=== PATIENT | female | born 1975 | race Hispanic/Latino ===

== ENCOUNTER 2018-12-07 09:19 | Inpatient (IN) | payer BC ==
[2018-12-07] MEDS ORDERED: Morphine 4 MG/ML VIAL ONE ×2 (09:34→10:03)
[2018-12-07] MEDS ORDERED: Morphine 4 MG/ML VIAL IV STA ×2 (09:42→10:15)
--- NOTE | 2018-12-07 10:15 | ED PDOC ---
Lower Extremity Pain/Injury Time Seen by Provider: 12/07/18 09:25 Chief Complaint (Nursing): Lower Extremity Problem/Injury Chief Complaint (Provider): Right leg pain History Per: Patient History/Exam Limitations: no limitations Onset/Duration Of Symptoms: Hrs Current Symptoms Are (Timing): Still Present Additional Complaint(s): 43 year old female with a history of asthma presents to the ED for an evaluation of her right leg. Patients reports he was in the dog park and taken out by some dogs today. Currently, patient has right leg pain and states he called Dr. Bimal villeda, a family friend who was called prior to coming to ED. PMD: unknown provider Past Medical History Reviewed: Historical Data, Nursing Documentation, Vital Signs Vital Signs: Last Vital Signs Temp 98.2 F 12/07/18 09:23 Pulse 91 H 12/07/18 09:23 Resp 18 12/07/18 09:23 BP 146/50 L 12/07/18 09:23 Pulse Ox 100 12/07/18 09:23 - Medical History PMH: Asthma Denies: Chronic Kidney Disease - Family History Family History: States: Unknown Family Hx - Social History Current smoker - smoking cessation education provided: No Alcohol: None Drugs: Denies - Immunization History Hx Tetanus Toxoid Vaccination: No - Home Medications Home Medications: Ambulatory Orders Medication Instructions Recorded Montelukast [Singulair] 10 mg PO DAILY 11/05/14 Budesonide/Formoterol Fumarate 2 puff PO BID 12/07/18 [Symbicort 80-4.5 Mcg Inhaler] buPROPion [Wellbutrin] 75 mg PO DAILY 12/07/18 Docusate Sodium [Colace] 100 mg PO HS 30 Days #30 capsule 12/09/18 Enoxaparin [Lovenox] 40 mg SC DAILY 14 Days #14 syr 12/09/18 Ferrous Sulfate 325 mg PO BID 30 Days #60 tablet 12/09/18 oxyCODONE/Acetaminophen [Percocet 1 tab PO Q4 PRN #30 tab 12/09/18 5/325 mg Tab] - Allergies Allergies/Adverse Reactions: Allergies Allergy/AdvReac Type Severity Reaction Status Date / Time No Known Allergies Allergy Verified 11/05/14 07:10 Review of Systems ROS Statement: Except As Marked, All Systems Reviewed And Found Negative Constitutional: Negative for: Fever Musculoskeletal: Positive for: Leg Pain (right) Skin: Negative for: Rash Neurological: Negative for: Weakness, Numbness Physical Exam - Reviewed Nursing Documentation Reviewed: Yes Vital Signs Reviewed: Yes - Physical Exam Appears: Positive for: In Acute Distress (painful) Head Exam: Positive for: ATRAUMATIC, NORMAL INSPECTION, NORMOCEPHALIC Skin: Positive for: Normal Color, Warm, Dry. Negative for: Rash Eye Exam: Positive for: Normal appearance Cardiovascular/Chest: Positive for: Regular Rate, Rhythm. Negative for: Murmur Respiratory: Positive for: Normal Breath Sounds. Negative for: Decreased Breath Sounds, Respiratory Distress Pulses-Dorsalis Pedis (R): 2+ Extremity: Positive for: Deformity (Obvious deformity to distal right lower leg with superficial abrasion), Other (Moving all digits; sensation intact of right leg) Neurologic/Psych: Positive for: Alert, Oriented (x3) - Laboratory Results Result Diagrams: 12/09/18 05:15 12/09/18 05:15 - ECG O2 Sat by Pulse Oximetry: 100 (RA) Pulse Ox Interpretation: Normal Medical Decision Making Medical Decision Making: Time: 924 Impression: right leg pain Plan: ED urine Knee 3 views RT [RAD] Morphine 2mg Ankle right 3 views [RAD] Tibia fibula RT fall [RAD] Reevaluation Podiatry resident called into the ED and will be in ED at 11AM 0935 PROCEDURE: Radiographs of the right tibia and fibula. HISTORY: Fall COMPARISON: None available TECHNIQUE: Frontal and lateral views obtained. FINDINGS: BONES: Partially imaged fracture of the distal tibia and fibula. JOINT SPACES: Unremarkable. OTHER FINDINGS: None. IMPRESSION: Limited evaluation due to absence of AP view. Partially imaged fractures of the distal tibia and fibula. 0935 PROCEDURE: Right Ankle Radiographs. HISTORY: Fall COMPARISON: None available. FINDINGS: BONES: Fractures of the distal tibia and fibula. JOINTS: Ankle mortise maintained. Talar dome intact SOFT TISSUES: Normal. OTHER FINDINGS: None. IMPRESSION: Limited evaluation due to absence of AP view. Fractures of the distal tibia and fibula. 1052 PROCEDURE: CHEST RADIOGRAPH, 1 VIEW HISTORY: Medical clearance COMPARISON: None available. FINDINGS: LUNGS: Clear. PLEURA: No pneumothorax or pleural fluid seen. CARDIOVASCULAR: No aortic atherosclerotic calcification present. Normal. OSSEOUS STRUCTURES: No significant abnormalities. VISUALIZED UPPER ABDOMEN: Normal. OTHER FINDINGS: None. IMPRESSION: No active disease. 1106 PROCEDURE: Radiographs of the right tibia and fibula. HISTORY: Fall COMPARISON: Right tibia and fibula radiographs performed earlier the same day TECHNIQUE: Frontal and lateral views obtained. FINDINGS: BONES: Comminuted displaced fractures of the distal tibia and fibular diaphyses. JOINT SPACES: Unremarkable. OTHER FINDINGS: None. IMPRESSION: Comminuted displaced fractures of the distal tibia and fibular diaphyses. [address] Cheney and patient is will be admitted with right tib-fib fracture Scribe Attestation: Documented by Kayden Rosenbaum, acting as a scribe for Yani Dee MD. Provider Scribe Attestation: All medical record entries made by the Scribe were at my direction and personally dictated by me. I have reviewed the chart and agree that the record accurately reflects my personal performance of the history, physical exam, medical decision making, and the department course for this patient. I have also personally directed, reviewed, and agree with the discharge instructions and disposition. Disposition - Clinical Impression Clinical Impression: Fracture of tibia and fibula - Patient ED Disposition Is Patient to be Admitted: Yes - Disposition Disposition Time: 11:00 Condition: STABLE - Pt Status Changed To: Hospital Disposition Of: Inpatient - Admit Certification Admit to Inpatient:: After my assessment, the patient will require hospitalization for at least two midnights. This is because of the severity of symptoms shown, intensity of services needed, and/or the medical risk in this patient being treated as an outpatient. - POA Present On Arrival: Falls Or Trauma
--- NOTE | 2018-12-07 10:38 | RAD ---
Date of service: 12/07/2018 PROCEDURE: Radiographs of the right tibia and fibula. HISTORY: Fall COMPARISON: None available TECHNIQUE: Frontal and lateral views obtained. FINDINGS: BONES: Partially imaged fracture of the distal tibia and fibula. JOINT SPACES: Unremarkable. OTHER FINDINGS: None. IMPRESSION: Limited evaluation due to absence of AP view. Partially imaged fractures of the distal tibia and fibula.
--- NOTE | 2018-12-07 10:41 | RAD ---
Date of service: 12/07/2018 PROCEDURE: Right Ankle Radiographs. HISTORY: Fall COMPARISON: None available. FINDINGS: BONES: Fractures of the distal tibia and fibula. JOINTS: Ankle mortise maintained. Talar dome intact SOFT TISSUES: Normal. OTHER FINDINGS: None. IMPRESSION: Limited evaluation due to absence of AP view. Fractures of the distal tibia and fibula.
[2018-12-07 10:55] LABS: BASO # 0.1 K/uL (0.0-0.2); EOS # 0.7 K/uL (0.0-0.7); EOS % 6.6 % (0.0-4.0); HEMOGLOBIN 11.5 g/dL (12.0-16.0); LYMPH # 3.5 K/uL (1.0-4.3); LYMPH % 32.3 % (20.0-40.0); MEAN CELL VOLUME 80.2 fl (81.0-99.0); MEAN CORPUSCULAR HEMOGLOBIN 25.4 pg (27.0-31.0); MEAN CORPUSCULAR HGB CONC 31.7 g/dL (33.0-37.0); MEAN PLATELET VOLUME 8.5 fl (7.2-11.7); MONO # 0.9 K/uL (0.0-0.8); MONO % 8.5 % (0.0-10.0); NEUT # 5.6 K/uL (1.8-7.0); NEUT % 51.6 % (50.0-75.0); NRBC % 0.1 % (0.0-0.0); RBC 4.51 Mil/uL (3.80-5.20); RED CELL DISTRIBUTION WIDTH 16.7 % (11.5-14.5); WHITE BLOOD COUNT 10.9 K/uL (4.8-10.8)
--- NOTE | 2018-12-07 10:56 | RAD ---
Date of service: 12/07/2018 PROCEDURE: CHEST RADIOGRAPH, 1 VIEW HISTORY: Medical clearance COMPARISON: None available. FINDINGS: LUNGS: Clear. PLEURA: No pneumothorax or pleural fluid seen. CARDIOVASCULAR: No aortic atherosclerotic calcification present. Normal. OSSEOUS STRUCTURES: No significant abnormalities. VISUALIZED UPPER ABDOMEN: Normal. OTHER FINDINGS: None. IMPRESSION: No active disease.
[2018-12-07 11:10] LABS: ALB/GLOB RATIO 1.2 (1.0-2.1); ALBUMIN 4.4 g/dL (3.5-5.0); BLOOD UREA NITROGEN 15 mg/dl (7-17); CALCIUM 9.8 mg/dL (8.4-10.2); GFR NON-AFRICAN AMERICAN > 60
--- NOTE | 2018-12-07 11:10 | RAD ---
Date of service: 12/07/2018 PROCEDURE: Radiographs of the right tibia and fibula. HISTORY: Fall COMPARISON: Right tibia and fibula radiographs performed earlier the same day TECHNIQUE: Frontal and lateral views obtained. FINDINGS: BONES: Comminuted displaced fractures of the distal tibia and fibular diaphyses. JOINT SPACES: Unremarkable. OTHER FINDINGS: None. IMPRESSION: Comminuted displaced fractures of the distal tibia and fibular diaphyses.
[2018-12-07 11:11] LABS: ALT/SGPT 24 U/L (9-52); AST/SGOT 33 U/L (14-36)
[2018-12-07 11:16] LABS: INR 0.9; PROTHROMBIN TIME 10.1 Seconds (9.8-13.1)
[2018-12-07] MEDS ORDERED: Lidocaine 1% 5ml Abboject ONE (12:01)
[2018-12-07] MEDS ORDERED: Neostigmine 1:1000 (1 mg/ml) Inj ONE (12:01)
[2018-12-07] MEDS ORDERED: Rocuronium 10 mg/ml (5 ml) ONE (12:01)
[2018-12-07] MEDS ORDERED: Lidocaine 4% (Laryng-O-Jet) Kit MM ONE (12:01)
[2018-12-07] MEDS ORDERED: Midazolam 2 MG/2 ML VIAL ONE (12:01)
[2018-12-07] MEDS ORDERED: Propofol 10 mg/ml Inj (20 ML) ONE (12:01)
[2018-12-07] MEDS ORDERED: Succinylcholine Chloride 20 mg/ml Syr (5 ml) IV ONE (12:03)
--- NOTE | 2018-12-07 12:31 | CT ---
Date of service: 12/07/2018 PROCEDURE: CT of the right lower extremity. HISTORY: Tibial fx COMPARISON: Right tibia/fibula radiographs performed earlier the same day TECHNIQUE: Contiguous axial images of the left hip were obtained. Coronal and sagittal reformats were generated. Radiation dose: Total exam DLP = 624.03 mGy-cm. This CT exam was performed using one or more of the following dose reduction techniques: Automated exposure control, adjustment of the mA and/or kV according to patient size, and/or use of iterative reconstruction technique. FINDINGS: BONES: Comminuted displaced fractures of the distal tibial and fibular diaphyses. SOFT TISSUES: Lower extremity soft tissue swelling. Small amount of extraosseous fat due to fracture. IMPRESSION: Comminuted, displaced distal tibial and fibular diaphyseal fractures.
--- NOTE | 2018-12-07 12:36 | CP.PCM.HP ---
History of Present Illness - History of Present Illness History of Present Illness: 43 year old female presents to the ED this morning for an evaluation of her right leg. Patients reports she was walking in the dog park and was felled by a group of passing dogs. She immediately felt pain and was unable to weight-bear on the right leg. Currently, patient has right leg pain and states he called Dr. Morgan, a family friend who was called prior to coming to ED. PMD: unknown provider PMH: Asthma PSH: DNC, uterine fibroid excision All: NKNDA Meds: Albuterol, Sybicort, Albuterol, Wellbutin Fam Hx: Paternal Diabetes mellitus, MAternal grandfather: Cancer x3 Present on Admission - Present on Admission Any Indicators Present on Admission: No History of DVT/PE: No History of Uncontrolled Diabetes: No Urinary Catheter: No Decubitus Ulcer Present: No History Surgical Site Infection Following: None Review of Systems - Review of Systems All systems: reviewed and no additional remarkable complaints except Past Patient History - Infectious Disease Hx of Infectious Diseases: None - Past Medical History & Family History Past Family History: Reviewed and not pertinent - Past Social History Smoking Status: Former Smoker (Quit 20 plus years, smoked 1/5 pack a day for 5 year duration) Chewing Tobacco Use: No Cigar Use: No Occupation: Teacher Alcohol: None Drugs: Denies Home Situation {Lives}: With Family Domestic Violence: Negative - CARDIAC Hx Cardiac Disorders: No - PULMONARY Hx Asthma: Yes - NEUROLOGICAL Hx Neurological Disorder: No - HEENT Hx HEENT Problems: No - RENAL Hx Chronic Kidney Disease: No - ENDOCRINE/METABOLIC Hx Endocrine Disorders: No - HEMATOLOGICAL/ONCOLOGICAL Hx Blood Disorders: No - INTEGUMENTARY Hx Dermatological Problems: No - MUSCULOSKELETAL/RHEUMATOLOGICAL Hx Musculoskeletal Disorders: No - GASTROINTESTINAL Hx Gastrointestinal Disorders: No - GENITOURINARY/GYNECOLOGICAL Hx Genitourinary Disorders: No - PSYCHIATRIC Hx Psychophysiologic Disorder: Yes - SURGICAL HISTORY Hx Surgeries: No - ANESTHESIA Hx Anesthesia: No Hx Anesthesia Reactions: No Hx Malignant Hyperthermia: No Meds Allergies/Adverse Reactions: Allergies Allergy/AdvReac Type Severity Reaction Status Date / Time No Known Allergies Allergy Verified 11/05/14 07:10 Physical Exam - Constitutional Appears: Well - Head Exam Head Exam: ATRAUMATIC, NORMAL INSPECTION - Eye Exam Eye Exam: EOMI, Normal appearance, PERRL Pupil Exam: NORMAL ACCOMODATION, PERRL - ENT Exam ENT Exam: Mucous Membranes Moist, Normal Exam - Neck Exam Neck exam: Positive for: Normal Inspection - Respiratory Exam Respiratory Exam: Clear to Auscultation Bilateral, NORMAL BREATHING PATTERN - Cardiovascular Exam Cardiovascular Exam: REGULAR RHYTHM - GI/Abdominal Exam GI & Abdominal Exam: Normal Bowel Sounds, Soft - Rectal Exam Rectal Exam: Deferred - Extremities Exam Additional comments: Right mid leg external abduction mal-alignment deformity with accompanying edema and rubor. No open wounds. Soft tissue envelope intact to level. Popliteal and pedal pulses of the right lower extremity intact and grossly palpable. Results - Vital Signs Recent Vital Signs: Last Vital Signs Temp 98.2 F 12/07/18 09:23 Pulse 91 H 12/07/18 11:05 Resp 14 12/07/18 10:36 BP 177/97 H 12/07/18 10:36 Pulse Ox 100 12/07/18 11:22 - Labs Result Diagrams: 12/07/18 10:10 12/07/18 10:10 Labs: Laboratory Results - last 24 hr 12/07/18 12/07/18 12/07/18 10:10 10:10 10:10 WBC 10.9 H RBC 4.51 Hgb 11.5 L Hct 36.1 MCV 80.2 L MCH 25.4 L MCHC 31.7 L RDW 16.7 H Plt Count 345 MPV 8.5 Neut % (Auto) 51.6 Lymph % (Auto) 32.3 [place] % (Auto) 8.5 Eos % (Auto) 6.6 H Baso % (Auto) 1.0 Neut # (Auto) 5.6 Lymph # (Auto) 3.5 [place] # (Auto) 0.9 H Eos # (Auto) 0.7 Baso # (Auto) 0.1 PT INR APTT Sodium 136 Potassium 4.8 Chloride 99 Carbon Dioxide 23 Anion Gap 19 BUN 15 Creatinine 0.8 Est GFR ( Amer) > 60 Est GFR (Non-Af Amer) > 60 Random Glucose 101 Calcium 9.8 Total Bilirubin 0.6 AST 33 ALT 24 Alkaline Phosphatase 73 Total Protein 8.1 Albumin 4.4 Globulin 3.7 Albumin/Globulin Ratio 1.2 Blood Type O POSITIVE Antibody Screen Negative BBK History Checked No verified bt 12/07/18 10:10 WBC RBC Hgb Hct MCV MCH MCHC RDW Plt Count MPV Neut % (Auto) Lymph % (Auto) [place] % (Auto) Eos % (Auto) Baso % (Auto) Neut # (Auto) Lymph # (Auto) [place] # (Auto) Eos # (Auto) Baso # (Auto) PT 10.1 INR 0.9 APTT 28.0 Sodium Potassium Chloride Carbon Dioxide Anion Gap BUN Creatinine Est GFR ( Amer) Est GFR (Non-Af Amer) Random Glucose Calcium Total Bilirubin AST ALT Alkaline Phosphatase Total Protein Albumin Globulin Albumin/Globulin Ratio Blood Type Antibody Screen BBK History Checked Assessment & Plan - Assessment and Plan (Free Text) Assessment: Right lower extremity comminuted mid shaft tibia and fibular fractures, closed displaced. Plan: PT seen and evaluated. Co to orthopedics Dr. Vizcaino. placed Pt to go tho emergent right limb ORIF
[2018-12-07] MEDS ORDERED: Lactated Ringer's 1,000 ML IV ONE ×2 (13:00→15:52)
--- NOTE | 2018-12-07 15:44 | PCM.SURG1 ---
Surgeon's Initial Post Op Note - Surgeon's Notes Surgeon: Mahendra Beck. Dann Preciado, Dr. [facility] Internship: Dr. Kristin Chase, PGY3, Dr. Lincoln Romero Type of Anesthesia: General LMA Anesthesia Administered By: Dr. Koehler Pre-Operative Diagnosis: 1- Right tibial midshaft fractue. Closed, displaced and comminuted. 2- Right fibula midshaft fractue. Closed, displaced and comminuted. Operative Findings: See Dictation. Materials: Synthes size 9 intramedullary nail. 4 X 5.0 mm Screws Synthes. Injectables: None Post-Operative Diagnosis: 1- Right tibial midshaft fractue. Closed, displaced and comminuted. 2- Right fibula midshaft fractue. Closed, displaced and comminuted. Operation Performed: Right tibial Open reduction with internal fixation Via intramedullary nail. Specimen/Specimens Removed: None Estimated Blood Loss: EBL {In ML}: 60 Blood Products Given: N/A Drains Used: No Drains Post-Op Condition: Good Date of Surgery/Procedure: 12/07/18 Time of Surgery/Procedure: 15:46
[2018-12-07] MEDS ORDERED: HYDROmorphone 0.5 mg/0.5 ml ISec ONE (15:45)
[2018-12-07] MEDS: HYDROmorphone 0.5 mg/0.5 ml ISec IVP PRN ×4 (15:45→16:20)
--- NOTE | 2018-12-07 16:25 | CP.PCM.CON ---
History of Present Illness - History of Present Illness History of Present Illness: Consult not e for attending Dr. Vizcaino; 43 y/o F Patient with PMH of Asthma seen ad evaluated in the ED for pain and deformity in the right leg. Patient states that she was at the dog's park today morning when a dog ran through her and cause her to fall down. Patient states that she immediately felt the pain i her right leg and couldn't stand up. Patient states that she was brought to the [place] ED. Patient states that she has pain 10/10. She denies any tingling, numbness or burning sensation in her leg. She denies any recent F/N/V/C/C/CP/SOB. She denies any loss of consciousness or vomiting after the fall. PMH: Asthma. PSH: None Allergies: NKDA. Social Hx: Denies smoking or Illicit drug use. Use EtOH socially. Review of Systems - Review of Systems Review of Systems: As Per HPI - Constitutional Constitutional: As Per HPI Past Patient History - Infectious Disease Hx of Infectious Diseases: None - Past Medical History & Family History Past Family History: Reviewed and not pertinent - Past Social History Smoking Status: Former Smoker (Quit 20 plus years, smoked 1/5 pack a day for 5 year duration) Chewing Tobacco Use: No Cigar Use: No Occupation: Teacher Alcohol: None Drugs: Denies Home Situation {Lives}: With Family Domestic Violence: Negative - CARDIAC Hx Cardiac Disorders: No - PULMONARY Hx Asthma: Yes - NEUROLOGICAL Hx Neurological Disorder: No - HEENT Hx HEENT Problems: No - RENAL Hx Chronic Kidney Disease: No - ENDOCRINE/METABOLIC Hx Endocrine Disorders: No - HEMATOLOGICAL/ONCOLOGICAL Hx Blood Disorders: No - INTEGUMENTARY Hx Dermatological Problems: No - MUSCULOSKELETAL/RHEUMATOLOGICAL Hx Musculoskeletal Disorders: No - GASTROINTESTINAL Hx Gastrointestinal Disorders: No - GENITOURINARY/GYNECOLOGICAL Hx Genitourinary Disorders: No - PSYCHIATRIC Hx Psychophysiologic Disorder: Yes - SURGICAL HISTORY Hx Surgeries: No - ANESTHESIA Hx Anesthesia: No Hx Anesthesia Reactions: No Hx Malignant Hyperthermia: No Meds Allergies/Adverse Reactions: Allergies Allergy/AdvReac Type Severity Reaction Status Date / Time No Known Allergies Allergy Verified 11/05/14 07:10 - Medications Medications: Current Medications Acetaminophen (Tylenol 325mg Tab) 650 mg PO Q6 PRN PRN Reason: Pain, Mild (1-3) Hydromorphone HCl (Dilaudid) 0.5 mg IVP Q10M PRN PRN Reason: Pain, moderate (4-7) Stop: 12/07/18 17:39 Last Admin: 12/07/18 16:10 Dose: 0.5 mg Hydromorphone HCl (Dilaudid 0.2 Mg/Ml Operating Manager) 0 mg IV PRN PRN; Protocol PRN Reason: Pain, severe (8-10) Lactated Ringer's (Lactated Ringer's) 1,000 mls @ 100 mls/hr IV .Q10H TOY Ondansetron HCl (Zofran Inj) 4 mg IVP ONCE PRN PRN Reason: Nausea/Vomiting Stop: 12/07/18 17:39 Last Admin: 12/07/18 16:11 Dose: 4 mg Oxycodone/Acetaminophen (Percocet 5/325 Mg Tab) 1 tab PO Q4 PRN PRN Reason: Pain, moderate (4-7) Stop: 12/10/18 15:38 Oxycodone/Acetaminophen (Percocet 5/325 Mg Tab) 2 tab PO Q4 PRN PRN Reason: Pain, severe (8-10) Stop: 12/10/18 15:38 Physical Exam - Constitutional Appears: Well, Non-toxic, No Acute Distress - Head Exam Head Exam: ATRAUMATIC, NORMOCEPHALIC - Extremities Exam Additional comments: RLE Focused exam: Vasc: DP/PT 2/4, Cap refill < 3 sec to all digits, Temp gradient warm to cool from proximal to distal. Moderate non pitting edema and bruises at the lower 1/3 of the leg. Neuro: Gross and protective sensations are intact. Derm: Bruises at the lower 1/3 of the casas of tibia. MSK: Muscle power couldn't be assessed due to pain and guarding. Obvious deformi ty of the R LE with the distal 1/3 connected to the rest of the leg via soft tissue. - Neurological Exam Neurological exam: Alert, Oriented x3 - Psychiatric Exam Psychiatric exam: Normal Affect, Normal Mood Results - Vital Signs Recent Vital Signs: Last Vital Signs Temp 99.1 F 12/07/18 15:45 Pulse 107 H 12/07/18 16:10 Resp 19 12/07/18 16:10 BP 181/100 H 12/07/18 16:10 Pulse Ox 100 12/07/18 16:10 - Labs Result Diagrams: 12/07/18 10:10 12/07/18 10:10 Labs: Laboratory Results - last 24 hr 12/07/18 12/07/18 12/07/18 10:10 10:10 10:10 WBC 10.9 H RBC 4.51 Hgb 11.5 L Hct 36.1 MCV 80.2 L MCH 25.4 L MCHC 31.7 L RDW 16.7 H Plt Count 345 MPV 8.5 Neut % (Auto) 51.6 Lymph % (Auto) 32.3 [place] % (Auto) 8.5 Eos % (Auto) 6.6 H Baso % (Auto) 1.0 Neut # (Auto) 5.6 Lymph # (Auto) 3.5 [place] # (Auto) 0.9 H Eos # (Auto) 0.7 Baso # (Auto) 0.1 PT INR APTT Sodium 136 Potassium 4.8 Chloride 99 Carbon Dioxide 23 Anion Gap 19 BUN 15 Creatinine 0.8 Est GFR ( Amer) > 60 Est GFR (Non-Af Amer) > 60 Random Glucose 101 Calcium 9.8 Total Bilirubin 0.6 AST 33 ALT 24 Alkaline Phosphatase 73 Total Protein 8.1 Albumin 4.4 Globulin 3.7 Albumin/Globulin Ratio 1.2 Blood Type O POSITIVE Antibody Screen Negative BBK History Checked No verified bt 12/07/18 10:10 WBC RBC Hgb Hct MCV MCH MCHC RDW Plt Count MPV Neut % (Auto) Lymph % (Auto) [place] % (Auto) Eos % (Auto) Baso % (Auto) Neut # (Auto) Lymph # (Auto) [place] # (Auto) Eos # (Auto) Baso # (Auto) PT 10.1 INR 0.9 APTT 28.0 Sodium Potassium Chloride Carbon Dioxide Anion Gap BUN Creatinine Est GFR ( Amer) Est GFR (Non-Af Amer) Random Glucose Calcium Total Bilirubin AST ALT Alkaline Phosphatase Total Protein Albumin Globulin Albumin/Globulin Ratio Blood Type Antibody Screen BBK History Checked Assessment & Plan - Assessment and Plan (Free Text) Assessment: 43 y/o F patient with PMH of Asthma seen and evaluated in the ED for: 1- Right tibial midshaft fractue. Closed, displaced and comminuted. 2- Right fibula midshaft fractue. Closed, displaced and comminuted. Plan: Patient seen and evaluated in the ED. Plan discussed in dtails with attending Dr. Vizcaino. Charts, labs and vitals reviewed: Afebrile, no leukocytosis. R Tib-fibula X-ray: 1- Right tibial midshaft fractue. Closed, displaced and comminuted. 2- Right fibula midshaft fractue. Closed, displaced and comminuted. R LE CT scan: 1- Right tibial Diaphyseal fractue. Closed, displaced and comminuted. 2- Right fibula Diaphyseal fractue. Closed, displaced and comminuted. Patient RLE put in an AO posterior splint. Discussed with the patient the need to go to the OR for internal fixation of the fracture. Patient expressed verbal understanding. Patient agreed for the surgery. Patient to stay NPO. Patient to go to the OR for ORIF RLE today.CBC, BMP, Chest X-ray ordered. Patient to be admitted to the hospital by the primary team. Patient to be followed up at the hospital by ortho. Thank you for the consult. - Date & Time Date: 12/07/18 Time: 09:30
--- NOTE | 2018-12-07 16:32 | CP.PCM.HP ---
<Sultan Collette - Last Filed: 12/07/18 16:53> History of Present Illness - History of Present Illness History of Present Illness: 43 year old female with PMHx of asthma presents to [facility] ED this morning for an evaluation of her right leg pain. Patients states she was walking in the dog park with her dog this morning, was looking away and ran by dogs which caused to her fall down. She immediately felt pain and was unable to weight-bear on the right leg. In ED, right lower extermity x-ray shows fx of communited displaced fracture of distal tibia and fibula. Patient is admitted for ORIF of right tib/fib. ROS: All 12 systems reviewed and negative except as mentioned in HPI PMD: Dr. Escoto, [facility] PMHx: Asthma, Depression PSHx: DNC, uterine fibroid excision Family hx: Father: DMII, Paternal grandmother: ovarian CA Social: Former Smoker (Quit 20 plus years, smoked 1/5 pack a day for 5 year duration), social EtOH use. denies any drugs uses. Allergies: NKDA Medications: Albuterol, Symbicort, Singulair,wellbutrin Present on Admission - Present on Admission Any Indicators Present on Admission: No Review of Systems - Review of Systems All systems: reviewed and no additional remarkable complaints except Past Patient History - Infectious Disease Hx of Infectious Diseases: None - Past Medical History & Family History Past Family History: Reviewed and not pertinent - Past Social History Smoking Status: Former Smoker (Quit 20 plus years, smoked 1/5 pack a day for 5 year duration) Chewing Tobacco Use: No Cigar Use: No Occupation: Teacher Alcohol: None Drugs: Denies Home Situation {Lives}: With Family Domestic Violence: Negative - CARDIAC Hx Cardiac Disorders: No - PULMONARY Hx Asthma: Yes - NEUROLOGICAL Hx Neurological Disorder: No - HEENT Hx HEENT Problems: No - RENAL Hx Chronic Kidney Disease: No - ENDOCRINE/METABOLIC Hx Endocrine Disorders: No - HEMATOLOGICAL/ONCOLOGICAL Hx Blood Disorders: No - INTEGUMENTARY Hx Dermatological Problems: No - MUSCULOSKELETAL/RHEUMATOLOGICAL Hx Musculoskeletal Disorders: No - GASTROINTESTINAL Hx Gastrointestinal Disorders: No - GENITOURINARY/GYNECOLOGICAL Hx Genitourinary Disorders: No - PSYCHIATRIC Hx Psychophysiologic Disorder: Yes - SURGICAL HISTORY Hx Surgeries: No - ANESTHESIA Hx Anesthesia: No Hx Anesthesia Reactions: No Hx Malignant Hyperthermia: No Meds Allergies/Adverse Reactions: Allergies Allergy/AdvReac Type Severity Reaction Status Date / Time No Known Allergies Allergy Verified 11/05/14 07:10 Physical Exam - Constitutional Appears: No Acute Distress - Head Exam Head Exam: NORMAL INSPECTION - Eye Exam Eye Exam: Normal appearance - ENT Exam ENT Exam: Mucous Membranes Moist, Normal Oropharynx - Neck Exam Neck exam: Positive for: Normal Inspection - Respiratory Exam Respiratory Exam: Clear to Auscultation Bilateral, NORMAL BREATHING PATTERN. absent: Rhonchi, Wheezes, Respiratory Distress - Cardiovascular Exam Cardiovascular Exam: REGULAR RHYTHM, +S1, +S2 - GI/Abdominal Exam GI & Abdominal Exam: Normal Bowel Sounds, Soft. absent: Tenderness - Extremities Exam Extremities exam: Negative for: calf tenderness Additional comments: RLE post op dressing in place. wiggles toes, neurovascular intact. - Neurological Exam Neurological exam: Alert, Oriented x3 - Psychiatric Exam Psychiatric exam: Normal Affect, Normal Mood - Skin Skin Exam: Normal Color, Warm Results - Vital Signs Recent Vital Signs: Last Vital Signs Temp 99.1 F 12/07/18 15:45 Pulse 107 H 12/07/18 16:10 Resp 19 12/07/18 16:10 BP 181/100 H 12/07/18 16:10 Pulse Ox 100 12/07/18 16:10 - Labs Result Diagrams: 12/07/18 10:10 12/07/18 10:10 Labs: Laboratory Results - last 24 hr 12/07/18 12/07/18 12/07/18 10:10 10:10 10:10 WBC 10.9 H RBC 4.51 Hgb 11.5 L Hct 36.1 MCV 80.2 L MCH 25.4 L MCHC 31.7 L RDW 16.7 H Plt Count 345 MPV 8.5 Neut % (Auto) 51.6 Lymph % (Auto) 32.3 [place] % (Auto) 8.5 Eos % (Auto) 6.6 H Baso % (Auto) 1.0 Neut # (Auto) 5.6 Lymph # (Auto) 3.5 [place] # (Auto) 0.9 H Eos # (Auto) 0.7 Baso # (Auto) 0.1 PT INR APTT Sodium 136 Potassium 4.8 Chloride 99 Carbon Dioxide 23 Anion Gap 19 BUN 15 Creatinine 0.8 Est GFR ( Amer) > 60 Est GFR (Non-Af Amer) > 60 Random Glucose 101 Calcium 9.8 Total Bilirubin 0.6 AST 33 ALT 24 Alkaline Phosphatase 73 Total Protein 8.1 Albumin 4.4 Globulin 3.7 Albumin/Globulin Ratio 1.2 Blood Type O POSITIVE Antibody Screen Negative BBK History Checked No verified bt 12/07/18 10:10 WBC RBC Hgb Hct MCV MCH MCHC RDW Plt Count MPV Neut % (Auto) Lymph % (Auto) [place] % (Auto) Eos % (Auto) Baso % (Auto) Neut # (Auto) Lymph # (Auto) [place] # (Auto) Eos # (Auto) Baso # (Auto) PT 10.1 INR 0.9 APTT 28.0 Sodium Potassium Chloride Carbon Dioxide Anion Gap BUN Creatinine Est GFR ( Amer) Est GFR (Non-Af Amer) Random Glucose Calcium Total Bilirubin AST ALT Alkaline Phosphatase Total Protein Albumin Globulin Albumin/Globulin Ratio Blood Type Antibody Screen BBK History Checked Assessment & Plan - Assessment and Plan (Free Text) Assessment: 43 year old female with PMHx of asthma presents to [facility] ED this morning for an evaluation of her right leg pain. Patients states she was walking in the dog park with her dog this morning, was looking away and ran by dogs which caused to her fall down. She immediately felt pain and was unable to weight-bear on the right leg. In ED, right lower extermity x-ray shows fx of communited displaced fracture of distal tibia and fibula. Patient is admitted for ORIF of right tib/fib. Communited displaced fracture of distal tibia and fibula, s/p ORIF today -R Tib-fibula X-ray: 1- Right tibial midshaft fractue. Closed, displaced and comminuted. 2- Right fibula midshaft fractue. Closed, displaced and comminuted. -R LE CT scan: 1- Right tibial Diaphyseal fractue. Closed, displaced and comminuted. 2- Right fibula Diaphyseal fractue. Closed, displaced and comminuted. -Orthopedist Consult -- Dr. Vizcaino -Pain control -Incentive spirometer -f/u AM labs Asthma, mild intermittent -resume home medication -duoneb prn Hx Depression and anxiety -resume wellbutrin Diet: -regular diet DVT prophylaxis -SCDs for now -Lovenox from tomorrow AM Code status: -full code Patient seen, examined and plan discussed with Dr. Henrry Murdock, pgy-2 <Felix Sales D - Last Filed: 12/07/18 17:42> Results - Vital Signs Recent Vital Signs: Last Vital Signs Temp 99.3 F 12/07/18 17:10 Pulse 107 H 12/07/18 17:24 Resp 18 12/07/18 17:24 BP 137/76 12/07/18 17:24 Pulse Ox 98 12/07/18 17:24 - Labs Result Diagrams: 12/07/18 10:10 12/07/18 10:10 Labs: Laboratory Results - last 24 hr 12/07/18 12/07/18 12/07/18 10:10 10:10 10:10 WBC 10.9 H RBC 4.51 Hgb 11.5 L Hct 36.1 MCV 80.2 L MCH 25.4 L MCHC 31.7 L RDW 16.7 H Plt Count 345 MPV 8.5 Neut % (Auto) 51.6 Lymph % (Auto) 32.3 [place] % (Auto) 8.5 Eos % (Auto) 6.6 H Baso % (Auto) 1.0 Neut # (Auto) 5.6 Lymph # (Auto) 3.5 [place] # (Auto) 0.9 H Eos # (Auto) 0.7 Baso # (Auto) 0.1 PT INR APTT Sodium 136 Potassium 4.8 Chloride 99 Carbon Dioxide 23 Anion Gap 19 BUN 15 Creatinine 0.8 Est GFR ( Amer) > 60 Est GFR (Non-Af Amer) > 60 Random Glucose 101 Calcium 9.8 Total Bilirubin 0.6 AST 33 ALT 24 Alkaline Phosphatase 73 Total Protein 8.1 Albumin 4.4 Globulin 3.7 Albumin/Globulin Ratio 1.2 Blood Type O POSITIVE Antibody Screen Negative BBK History Checked No verified bt 12/07/18 10:10 WBC RBC Hgb Hct MCV MCH MCHC RDW Plt Count MPV Neut % (Auto) Lymph % (Auto) [place] % (Auto) Eos % (Auto) Baso % (Auto) Neut # (Auto) Lymph # (Auto) [place] # (Auto) Eos # (Auto) Baso # (Auto) PT 10.1 INR 0.9 APTT 28.0 Sodium Potassium Chloride Carbon Dioxide Anion Gap BUN Creatinine Est GFR ( Amer) Est GFR (Non-Af Amer) Random Glucose Calcium Total Bilirubin AST ALT Alkaline Phosphatase Total Protein Albumin Globulin Albumin/Globulin Ratio Blood Type Antibody Screen BBK History Checked Attending/Attestation - Attestation I have personally seen and examined this patient.: Yes I have fully participated in the care of the patient.: Yes I have reviewed all pertinent clinical information: Yes Notes (Text): 12/07/18 17:40 Patient seen and examined with resident. Case discussed and agreed with assessment and plan. Patient is for observation post ORIF of tibia/fibular fracture
--- NOTE | 2018-12-07 17:07 | RAD ---
Date of service: 12/07/2018 PROCEDURE: Right Ankle Radiographs. HISTORY: S/P R leg ORIF COMPARISON: Right ankle and tibia/fibula radiographs performed earlier the same day FINDINGS: There has been interval open reduction internal fixation of the previously described distal tibia fracture. Osseous components demonstrate improved anatomic alignment. Distal fibular fracture also demonstrates improved anatomic alignment with mild persistent displacement. IMPRESSION: Interval ORIF distal tibia.
[2018-12-07] MEDS ORDERED: Albuterol-Ipratrop 3 mg / 0.5 (3 ml) UD INH PRN (17:17)
[2018-12-07] MEDS: Lactated Ringer's 1,000 ML IV SCH (19:19)
[2018-12-07] MEDS: Fluticasone-Salmeterol 250-50mcg Diskus INH SCH (21:16)
[2018-12-08] MEDS: Lactated Ringer's 1,000 ML IV SCH ×3 (00:57→22:08)
[2018-12-08 06:56] LABS: HEMOGLOBIN 9.3 g/dL (12.0-16.0); MEAN CORPUSCULAR HEMOGLOBIN 25.4 pg (27.0-31.0); MEAN CORPUSCULAR HGB CONC 31.7 g/dL (33.0-37.0); RBC 3.68 Mil/uL (3.80-5.20); RED CELL DISTRIBUTION WIDTH 16.9 % (11.5-14.5); WHITE BLOOD COUNT 12.6 K/uL (4.8-10.8)
[2018-12-08 07:12] LABS: BLOOD UREA NITROGEN 10 mg/dl (7-17); CALCIUM 8.5 mg/dL (8.4-10.2); GFR NON-AFRICAN AMERICAN > 60
[2018-12-08] MEDS ORDERED: Albuterol 0.083% Inhal Sol (2.5 mg/3 mL) UD INH PRN (08:23)
[2018-12-08] MEDS: Fluticasone-Salmeterol 250-50mcg Diskus INH SCH ×3 (09:57→20:50)
[2018-12-08] MEDS: Enoxaparin 40 mg Syringe SC SCH (09:58)
--- NOTE | 2018-12-08 11:25 | CP.PCM.PN ---
Subjective - Date & Time of Evaluation Date of Evaluation: 12/08/18 Time of Evaluation: 10:53 - Subjective Subjective: Progress note for attending Dr. Vizcaino: 43 y/o F patient seen and evaluated in the bedside 1 day S/P ORIF of Right tibial and fibula midshaft fractue displaced and comminuted. Patient states that she is better today. She states that she has pain at the surgery site but it's well controlled. Patient states that she feells little nauseous but no vomiting. She states that she didn't pass urine and the nurses have to catheter her twice. patient denies any overnight F/C/CP or SOB. Objective - Vital Signs/Intake and Output Vital Signs (last 24 hours): Temp Pulse Resp BP Pulse Ox 97.7 F 77 18 126/78 98 12/08/18 08:23 12/08/18 08:23 12/08/18 08:23 12/08/18 08:23 12/08/18 08:23 Intake and Output: 12/08/18 12/08/18 06:59 18:59 Intake Total 3000 Output Total 1100 Balance 1900 - Medications Medications: Current Medications Acetaminophen (Tylenol 325mg Tab) 650 mg PO Q6 PRN PRN Reason: Pain, Mild (1-3) Albuterol Sulfate (Albuterol 0.083% Inhal Leydi (2.5 Mg/3 Ml) Ud) 2.5 mg INH RQ4 PRN PRN Reason: Shortness of Breath Bupropion HCl (Wellbutrin) 75 mg PO DAILY [facility] Last Admin: 12/08/18 09:58 Dose: 75 mg Enoxaparin Sodium (Lovenox) 40 mg SC DAILY [facility]; Protocol Last Admin: 12/08/18 09:58 Dose: 40 mg Hydromorphone HCl (Dilaudid 0.2 Mg/Ml Wood Cutter) 0 mg IV PRN PRN; Protocol PRN Reason: Pain, severe (8-10) Last Admin: 12/08/18 05:27 Dose: 6 mg Lactated Ringer's (Lactated Ringer's) 1,000 mls @ 100 mls/hr IV .Q10H [facility] Last Admin: 12/08/18 00:57 Dose: Not Given Montelukast Sodium (Singulair) 10 mg PO DAILY [facility] Last Admin: 12/08/18 09:58 Dose: 10 mg Oxycodone/Acetaminophen (Percocet 5/325 Mg Tab) 1 tab PO Q4 PRN PRN Reason: Pain, moderate (4-7) Stop: 12/10/18 15:38 Oxycodone/Acetaminophen (Percocet 5/325 Mg Tab) 2 tab PO Q4 PRN PRN Reason: Pain, severe (8-10) Stop: 12/10/18 15:38 Fluticasone/Salmeterol (Advair Diskus 250/50) 1 puff INH RBID [facility] Last Admin: 12/08/18 10:20 Dose: Not Given - Labs Labs: 12/08/18 05:30 12/08/18 05:30 PT 10.1 Seconds (9.8-13.1) 12/07/18 10:10 INR 0.9 12/07/18 10:10 APTT 28.0 Seconds (25.6-37.1) 12/07/18 10:10 - Constitutional Appears: Well, Non-toxic, No Acute Distress - Head Exam Head Exam: ATRAUMATIC, NORMOCEPHALIC - Extremities Exam Additional comments: RLE was in a posterior splint. Splint was C/D/I, Splint left intact. Cap refill < 3 sec to all RLE toes. Patient can perform active ROM with her toes. - Neurological Exam Neurological Exam: Alert, Awake, Oriented x3 - Psychiatric Exam Psychiatric exam: Normal Affect, Normal Mood Assessment and Plan - Assessment and Plan (Free Text) Assessment: 43 y/o F patient seen and evaluated in the bedside 1 day S/P ORIF of Right tibial and fibula midshaft fractue displaced and comminuted. Plan: Patient seen and evaluated in the bedside. Plan discussed in details with attending Dr. Vizcaino. Charts, labs and vitals reviewed: Afebrile, WBCs 12.6. R Tib-fibula X-ray: 1- Right tibial midshaft fractue. Closed, displaced and comminuted. 2- Right fibula midshaft fractue. Closed, displaced and comminuted. R LE CT scan: 1- Right tibial Diaphyseal fractue. Closed, displaced and comminuted. 2- Right fibula Diaphyseal fractue. Closed, displaced and comminuted. R Tib-fibula X-ray postoperative: S/P IM Danyel of the tibia. R Ankle X-ray postoperative: S/P IM Danyel of the tibia. RLE was in a posterior splint. Splint was C/D/I, Splint left intact. Patient educated and adviced to continue RICE protocol. PT consult; Reccs appreciated; Pending PT evaluation. Ortho will continue to follow up the patient while in house.
--- NOTE | 2018-12-08 12:31 | CP.PCM.PN ---
<Ryanne Pierce - Last Filed: 12/08/18 13:47> Subjective - Date & Time of Evaluation Date of Evaluation: 12/08/18 Time of Evaluation: 09:09 - Subjective Subjective: 43 y/o F, POD 1 s/p ORIF of right tibial and fibula. She was seen and examined this AM. 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 She has been unable to pass urine. She denies any fever, chills, chest pain or sob. Objective - Vital Signs/Intake and Output Vital Signs (last 24 hours): Temp Pulse Resp BP Pulse Ox 97.7 F 77 18 126/78 98 12/08/18 08:23 12/08/18 08:23 12/08/18 08:23 12/08/18 08:23 12/08/18 08:23 Intake and Output: 12/08/18 12/08/18 06:59 18:59 Intake Total 3000 Output Total 1100 Balance 1900 - Medications Medications: Current Medications Acetaminophen (Tylenol 325mg Tab) 650 mg PO Q6 PRN PRN Reason: Pain, Mild (1-3) Albuterol Sulfate (Albuterol 0.083% Inhal Leydi (2.5 Mg/3 Ml) Ud) 2.5 mg INH RQ4 PRN PRN Reason: Shortness of Breath Bupropion HCl (Wellbutrin) 75 mg PO DAILY [facility] Last Admin: 12/08/18 09:58 Dose: 75 mg Enoxaparin Sodium (Lovenox) 40 mg SC DAILY [facility]; Protocol Last Admin: 12/08/18 09:58 Dose: 40 mg Hydromorphone HCl (Dilaudid 0.2 Mg/Ml Game And Fish Protector) 0 mg IV PRN PRN; Protocol PRN Reason: Pain, severe (8-10) Last Admin: 12/08/18 05:27 Dose: 6 mg Lactated Ringer's (Lactated Ringer's) 1,000 mls @ 100 mls/hr IV .Q10H [facility] Last Admin: 12/08/18 11:10 Dose: 100 mls/hr Montelukast Sodium (Singulair) 10 mg PO DAILY [facility] Last Admin: 12/08/18 09:58 Dose: 10 mg Oxycodone/Acetaminophen (Percocet 5/325 Mg Tab) 1 tab PO Q4 PRN PRN Reason: Pain, moderate (4-7) Stop: 12/10/18 15:38 Oxycodone/Acetaminophen (Percocet 5/325 Mg Tab) 2 tab PO Q4 PRN PRN Reason: Pain, severe (8-10) Stop: 12/10/18 15:38 Fluticasone/Salmeterol (Advair Diskus 250/50) 1 puff INH RBID [facility] Last Admin: 12/08/18 10:20 Dose: Not Given - Labs Labs: 12/08/18 05:30 12/08/18 05:30 PT 10.1 Seconds (9.8-13.1) 12/07/18 10:10 INR 0.9 12/07/18 10:10 APTT 28.0 Seconds (25.6-37.1) 12/07/18 10:10 - Constitutional Appears: Non-toxic - Head Exam Head Exam: ATRAUMATIC - Eye Exam Eye Exam: EOMI - ENT Exam ENT Exam: Mucous Membranes Moist - Respiratory Exam Respiratory Exam: Clear to Ausculation Bilateral - Cardiovascular Exam Cardiovascular Exam: REGULAR RHYTHM, +S1, +S2 - GI/Abdominal Exam GI & Abdominal Exam: Soft, Normal Bowel Sounds. absent: Guarding, Rigid, Tenderness - Extremities Exam Additional comments: right lower leg in splint; sensation in light touch intact & equal symmetrically. - Neurological Exam Neurological Exam: Alert, Oriented x3 - Psychiatric Exam Psychiatric exam: Normal Affect, Normal Mood - Skin Skin Exam: Dry, Intact Assessment and Plan - Assessment and Plan (Free Text) Assessment: 43 year old female with PMHx of asthma found to have comminuted & displaced fracture of right distal tibia and fibula s/p ORIF. 1.Communited displaced fracture of distal tibia and fibula, s/p ORIF yesterday -Awaiting PT evaluation (patient has 3-4 stairs at home) -Continue pain control -C/wIncentive spirometer 2. Asthma, mild intermittent -duoneb prn 3. Hx Depression and anxiety -C/w wellbutrin 4. Diet: -regular diet 5. DVT prophylaxis -Lovenox 6. Code status: -full code <SalesFelix D - Last Filed: 12/08/18 14:38> Objective - Vital Signs/Intake and Output Vital Signs (last 24 hours): Temp Pulse Resp BP Pulse Ox 97.7 F 83 20 153/83 H 98 12/08/18 12:59 12/08/18 12:59 12/08/18 12:59 12/08/18 12:59 12/08/18 12:59 Intake and Output: 12/08/18 12/08/18 06:59 18:59 Intake Total 3000 Output Total 1100 Balance 1900 - Medications Medications: Current Medications Acetaminophen (Tylenol 325mg Tab) 650 mg PO Q6 PRN PRN Reason: Pain, Mild (1-3) Albuterol Sulfate (Albuterol 0.083% Inhal Leydi (2.5 Mg/3 Ml) Ud) 2.5 mg INH RQ4 PRN PRN Reason: Shortness of Breath Bupropion HCl (Wellbutrin) 75 mg PO DAILY [facility] Last Admin: 12/08/18 09:58 Dose: 75 mg Enoxaparin Sodium (Lovenox) 40 mg SC DAILY [facility]; Protocol Last Admin: 12/08/18 09:58 Dose: 40 mg Hydromorphone HCl (Dilaudid 0.2 Mg/Ml Game And Fish Protector) 0 mg IV PRN PRN; Protocol PRN Reason: Pain, severe (8-10) Last Admin: 12/08/18 05:27 Dose: 6 mg Lactated Ringer's (Lactated Ringer's) 1,000 mls @ 100 mls/hr IV .Q10H [facility] Last Admin: 12/08/18 11:10 Dose: 100 mls/hr Montelukast Sodium (Singulair) 10 mg PO DAILY [facility] Last Admin: 12/08/18 09:58 Dose: 10 mg Oxycodone/Acetaminophen (Percocet 5/325 Mg Tab) 1 tab PO Q4 PRN PRN Reason: Pain, moderate (4-7) Stop: 12/10/18 15:38 Oxycodone/Acetaminophen (Percocet 5/325 Mg Tab) 2 tab PO Q4 PRN PRN Reason: Pain, severe (8-10) Stop: 12/10/18 15:38 Fluticasone/Salmeterol (Advair Diskus 250/50) 1 puff INH RBID [facility] Last Admin: 12/08/18 10:20 Dose: Not Given - Labs Labs: 12/08/18 05:30 12/08/18 05:30 PT 10.1 Seconds (9.8-13.1) 12/07/18 10:10 INR 0.9 12/07/18 10:10 APTT 28.0 Seconds (25.6-37.1) 12/07/18 10:10 Attending/Attestation - Attestation I have personally seen and examined this patient.: Yes I have fully participated in the care of the patient.: Yes I have reviewed all pertinent clinical information, including history, physical exam and plan: Yes Notes (Text): 12/08/18 14:34 Patient seen and examined with resident. Case discussed and agreed with assessment and plan. Patient stay extended because of urinary retention and unab le to teach patient crutch ambulation.
--- NOTE | 2018-12-08 16:58 | CARD ---
APPROVED REPORT Date of service: 12/07/2018 EKG Measurement Heart [id number] <Conclusion> Sinus tachycardia Possible Left atrial enlargement Borderline ECG
[2018-12-08] MEDS: Oxycodone/Acetaminophen 5/325 mg Tab PO PRN ×2 (18:31→22:25)
[2018-12-09] MEDS: Oxycodone/Acetaminophen 5/325 mg Tab PO PRN ×2 (03:58→08:00)
--- NOTE | 2018-12-09 05:51 | CP.PCM.PN ---
Subjective - Date & Time of Evaluation Date of Evaluation: 12/09/18 Time of Evaluation: 05:49 - Subjective Subjective: Progress note for attending Dr. Vizcaino: 43 y/o F patient seen and evaluated in the bedside 2 day S/P ORIF of Right tibial and fibula midshaft fractue displaced and comminuted. Patient states that she is better today. She states that she has pain at the surgery site but it's well controlled. Patient denies any overnight F/C/CP or SOB. Objective - Vital Signs/Intake and Output Vital Signs (last 24 hours): Temp Pulse Resp BP Pulse Ox 98.3 F 88 19 129/74 95 12/09/18 00:19 12/09/18 00:19 12/09/18 00:19 12/09/18 00:19 12/09/18 00:19 - Medications Medications: Current Medications Acetaminophen (Tylenol 325mg Tab) 650 mg PO Q6 PRN PRN Reason: Pain, Mild (1-3) Albuterol Sulfate (Albuterol 0.083% Inhal Leydi (2.5 Mg/3 Ml) Ud) 2.5 mg INH RQ4 PRN PRN Reason: Shortness of Breath Bupropion HCl (Wellbutrin) 75 mg PO DAILY [facility] Last Admin: 12/08/18 09:58 Dose: 75 mg Enoxaparin Sodium (Lovenox) 40 mg SC DAILY [facility]; Protocol Last Admin: 12/08/18 09:58 Dose: 40 mg Lactated Ringer's (Lactated Ringer's) 1,000 mls @ 100 mls/hr IV .Q10H [facility] Last Admin: 12/08/18 22:08 Dose: 100 mls/hr Montelukast Sodium (Singulair) 10 mg PO DAILY [facility] Last Admin: 12/08/18 09:58 Dose: 10 mg Oxycodone/Acetaminophen (Percocet 5/325 Mg Tab) 1 tab PO Q4 PRN PRN Reason: Pain, moderate (4-7) Stop: 12/10/18 15:38 Last Admin: 12/09/18 03:58 Dose: 1 tab Oxycodone/Acetaminophen (Percocet 5/325 Mg Tab) 2 tab PO Q4 PRN PRN Reason: Pain, severe (8-10) Stop: 12/10/18 15:38 Last Admin: 12/08/18 22:25 Dose: 2 tab Fluticasone/Salmeterol (Advair Diskus 250/50) 1 puff INH RBID [facility] Last Admin: 12/08/18 20:50 Dose: 1 puff - Labs Labs: 12/08/18 05:30 12/08/18 05:30 PT 10.1 Seconds (9.8-13.1) 12/07/18 10:10 INR 0.9 12/07/18 10:10 APTT 28.0 Seconds (25.6-37.1) 12/07/18 10:10 - Constitutional Appears: Well, Non-toxic - Head Exam Head Exam: ATRAUMATIC - Extremities Exam Additional comments: RLE was in a posterior splint. Splint was C/D/I, Splint left intact. Cap refill < 3 sec to all RLE toes. Patient can perform active ROM with her toes. Assessment and Plan - Assessment and Plan (Free Text) Assessment: 43 y/o F patient seen and evaluated in the bedside 1 day S/P ORIF of Right tibial and fibula midshaft fractue displaced and comminuted. Plan: Patient seen and evaluated in the bedside. Plan discussed in details with attending Dr. Vizcaino. Charts, labs and vitals reviewed: Afebrile, WBCs 12.6. R Tib-fibula X-ray: 1- Right tibial midshaft fractue. Closed, displaced and comminuted. 2- Right fibula midshaft fractue. Closed, displaced and comminuted. R LE CT scan: 1- Right tibial Diaphyseal fractue. Closed, displaced and comminuted. 2- Right fibula Diaphyseal fractue. Closed, displaced and comminuted. R Tib-fibula X-ray postoperative: S/P IM Danyel of the tibia. R Ankle X-ray postoperative: S/P IM Danyel of the tibia. RLE was in a posterior splint. Splint was C/D/I, Splint left intact. Patient educated and adviced to continue RICE protocol. PT consult; Reccs appreciated; Pending PT evaluation. Ptient to be nonweight bearing to the right lower extremity with the use of crutches. Patient to be d/c with lovenox for 2 weeks and pain medications prn Ortho will continue to follow up the patient while in house.
[2018-12-09 06:21] LABS: BASO % 0.3 % (0.0-2.0); EOS # 0.1 K/uL (0.0-0.7); EOS % 1.1 % (0.0-4.0); HEMOGLOBIN 8.6 g/dL (12.0-16.0); LYMPH # 1.5 K/uL (1.0-4.3); LYMPH % 13.1 % (20.0-40.0); MEAN CELL VOLUME 80.4 fl (81.0-99.0); MEAN CORPUSCULAR HEMOGLOBIN 25.7 pg (27.0-31.0); MEAN PLATELET VOLUME 8.1 fl (7.2-11.7); MONO # 1.1 K/uL (0.0-0.8); MONO % 9.3 % (0.0-10.0); NEUT # 8.7 K/uL (1.8-7.0); NEUT % 76.2 % (50.0-75.0); RBC 3.35 Mil/uL (3.80-5.20); RED CELL DISTRIBUTION WIDTH 17.1 % (11.5-14.5); WHITE BLOOD COUNT 11.4 K/uL (4.8-10.8)
[2018-12-09 06:25] LABS: BLOOD UREA NITROGEN 9 mg/dl (7-17); CALCIUM 8.6 mg/dL (8.4-10.2); GFR NON-AFRICAN AMERICAN > 60
[2018-12-09 08:35] VITALS: BP 172/90; PULSE 87; RESP 20; TEMP 97.9
--- NOTE | 2018-12-09 10:45 | CP.PCM.DIS ---
Provider - Provider Date of Admission: 12/07/18 11:07 Attending physician: Felix Sales MD Consults: 12/09/18 10:36 Orthopedic Consult Routine Comment: Consulting Provider: Mahendra Diaz Consulting Physician: Mahendra Diaz Reason for Consult: tib/fib fracture Time Spent in preparation of Discharge (in minutes): 30 Diagnosis - Discharge Diagnosis (1) Tibia/fibula fracture, shaft Status: Acute Priority: Low (2) Anemia due to blood loss, acute Status: Acute Priority: Low Hospital Course - Lab Results Lab Results: Most Recent Lab Values WBC 11.4 K/uL (4.8-10.8) H 12/09/18 05:15 RBC 3.35 Mil/uL (3.80-5.20) L 12/09/18 05:15 Hgb 8.6 g/dL (12.0-16.0) L 12/09/18 05:15 Hct 27.0 % (34.0-47.0) L 12/09/18 05:15 MCV 80.4 fl (81.0-99.0) L 12/09/18 05:15 MCH 25.7 pg (27.0-31.0) L 12/09/18 05:15 MCHC 32.0 g/dL (33.0-37.0) L 12/09/18 05:15 RDW 17.1 % (11.5-14.5) H 12/09/18 05:15 Plt Count 261 K/uL (130-400) 12/09/18 05:15 MPV 8.1 fl (7.2-11.7) 12/09/18 05:15 Neut % (Auto) 76.2 % (50.0-75.0) H 12/09/18 05:15 Lymph % (Auto) 13.1 % (20.0-40.0) L 12/09/18 05:15 [place] % (Auto) 9.3 % (0.0-10.0) 12/09/18 05:15 Eos % (Auto) 1.1 % (0.0-4.0) 12/09/18 05:15 Baso % (Auto) 0.3 % (0.0-2.0) 12/09/18 05:15 Neut # (Auto) 8.7 K/uL (1.8-7.0) H 12/09/18 05:15 Lymph # (Auto) 1.5 K/uL (1.0-4.3) 12/09/18 05:15 [place] # (Auto) 1.1 K/uL (0.0-0.8) H 12/09/18 05:15 Eos # (Auto) 0.1 K/uL (0.0-0.7) 12/09/18 05:15 Baso # (Auto) 0.0 K/uL (0.0-0.2) 12/09/18 05:15 PT 10.1 Seconds (9.8-13.1) 12/07/18 10:10 INR 0.9 12/07/18 10:10 APTT 28.0 Seconds (25.6-37.1) 12/07/18 10:10 Sodium 137 mmol/l (132-148) 12/09/18 05:15 Potassium 3.9 MMOL/L (3.6-5.0) 12/09/18 05:15 Chloride 99 mmol/L (98-107) 12/09/18 05:15 Carbon Dioxide 28 mmol/L (22-30) 12/09/18 05:15 Anion Gap 14 (10-20) 12/09/18 05:15 BUN 9 mg/dl (7-17) 12/09/18 05:15 Creatinine 0.8 mg/dl (0.7-1.2) 12/09/18 05:15 Est GFR ( Amer) > 60 12/09/18 05:15 Est GFR (Non-Af Amer) > 60 12/09/18 05:15 Random Glucose 133 mg/dL (65-105) H 12/09/18 05:15 Calcium 8.6 mg/dL (8.4-10.2) 12/09/18 05:15 Total Bilirubin 0.6 mg/dl (0.2-1.3) 12/07/18 10:10 AST 33 U/L (14-36) 12/07/18 10:10 ALT 24 U/L (9-52) 12/07/18 10:10 Alkaline Phosphatase 73 U/L (38-126) 12/07/18 10:10 Total Protein 8.1 G/DL (6.3-8.2) 12/07/18 10:10 Albumin 4.4 g/dL (3.5-5.0) 12/07/18 10:10 Globulin 3.7 gm/dL (2.2-3.9) 12/07/18 10:10 Albumin/Globulin Ratio 1.2 (1.0-2.1) 12/07/18 10:10 Blood Type O POSITIVE 12/07/18 10:10 Antibody Screen Negative 12/07/18 10:10 BBK History Checked No verified bt 12/07/18 10:10 - Hospital Course Hospital Course: 43 year old female patient, with PMHx fo asthma, admitted for comminuted displaced fracture of the distal tibia and fibula. During her hospital course, patient underwent ORIF with Dr. Diaz (DOS: 12/07/18) and tolerated procedure well. On day of discharge, patient was evaluated and treated by physical therapy, pain was well controlled, and patient stable for discharge home. Patient is to remain non-weightbearing to the right lower extremity. Patient to follow up with Dr. Diaz within one week. 1. POD#2 Right ORIF of Communited displaced fracture of distal tibia and fibula -R Tib-fibula X-ray: 1- Right tibial midshaft fractue. Closed, displaced and comminuted. 2- Right fibula midshaft fractue. Closed, displaced and comminuted. -R LE CT scan: 1- Right tibial Diaphyseal fractue. Closed, displaced and comminuted. 2- Right fibula Diaphyseal fractue. Closed, displaced and comminuted. -Orthopedic Consult: Dr. Diaz -Pain control -Incentive spirometer 2. Mild acute blood loss anemia - Hgb 11.5 on admission, 8.6 today - Date & Time of H&P Date of H&P: 12/09/18 Time of H&P: 10:52 Discharge Exam - Head Exam Head Exam: ATRAUMATIC - Eye Exam Eye Exam: Normal appearance Pupil Exam: NORMAL ACCOMODATION - Respiratory Exam Respiratory Exam: NORMAL BREATHING PATTERN, UNREMARKABLE - Cardiovascular Exam Cardiovascular Exam: REGULAR RHYTHM - GI/Abdominal Exam GI & Abdominal Exam: Normal Bowel Sounds, Soft - Extremities Exam Additional comments: Right lower extremity dressing clean/dry/intact - Neurological Exam Neurological exam: Alert, Oriented x3 - Psychiatric Exam Psychiatric exam: Normal Affect, Normal Mood - Skin Skin Exam: Warm Discharge Plan - Follow Up Plan Condition: GOOD Disposition: HOME/ ROUTINE Instructions: Shinbone Fracture, Tibia Fracture, Fibula Fracture (DC), Open Reduction and Internal Fixation Surgery (DC) Additional Instructions: follow up with dr diaz 1 week Referrals: Mahendra Diaz MD [Staff Provider] - Anju Escoto MD [Family Provider] -
[2018-12-09] MEDS: Enoxaparin 40 mg Syringe SC SCH (11:23)
[2018-12-09] MEDS: Fluticasone-Salmeterol 250-50mcg Diskus INH SCH (11:23)
[2018-12-09 15:19] VITALS: O2SAT 100
--- NOTE | 2018-12-09 15:34 | CON ---
DATE: 12/09/2018 HISTORY OF PRESENT ILLNESS: The patient is a 43-year-old female who presented to [facility] Emergency Room with a twisting and fall injury of her right leg. The patient reports that she was attacked by a dog, had a twisting injury and had difficulty bearing weight. The patient was brought into the emergency room where the x-ray had shown a displaced tibial shaft fracture with comminution. The patient denied pain in any other extremity or joint. Denies any loss of consciousness. Denied any paresthesias or motor weakness. examination of the patient's right leg, there is abrasion. There is no superficial wound. There is obvious rotational deformity of the tibia. Rest of the exam is limited secondary to pain. Brisk capillary refill, 3+ pedal pulses. IMAGING: X-ray and CT scan of the patient's right tibia did not show any intraarticular extension. No other pathology noted. ASSESSMENT: A 43-year-old female with traumatic right leg displaced tibial shaft fracture. TREATMENT AND PLAN: All the detail was discussed with the patient and the family. Due to displaced nature, the patient will be taken to operating room for immediate fixation. I have reviewed the risk and benefits of the surgery with the patient. The patient will remain n.p.o. We will take him to the operating room today. Mahendra Vizcaino MD
--- NOTE | 2018-12-09 19:40 | OP ---
PROCEDURE DATE: 12/07/2018 ATTENDING PHYSICIAN: Mahendra Vizcaino MD DISCOUNT CLERK: Cristi Franklin MD PREOPERATIVE DIAGNOSIS: Right leg tibial shaft fracture. POSTOPERATIVE DIAGNOSIS: Right leg tibial shaft fracture. PROCEDURES: 1. Right leg closed reduction and intramedullary nail fixation of tibial fracture. 2. Placement of a short leg splint. 3. Fluoroscopic use over 1 hour. ANESTHESIA TYPE: General. ESTIMATED BLOOD LOSS: 200 mL. IMPLANTS: Synthes 9 mm x 315 mm length tibial nail. COMPLICATIONS: None. PROCEDURE: A 43-year-old female with traumatic right tibial shaft fracture presented to the emergency room. The patient was taken to the operating room from the emergency room for immediate fixation. DESCRIPTION OF PROCEDURE: The patient was brought to the operating room area. A laterality was completed confirming the patient's right leg to be correct operative site. Informed consent was signed from the patient and the extremity was marked. The patient was brought into the operating room table. She underwent general anesthesia. She was given appropriate prophylactic antibiotics. The right leg was draped and prepped in standard sterile manner. First, a time-out was completed confirming the patient's right leg to be the correct operative site. The radiographs were taken, AP and lateral showing a displaced nature of the fracture and with manual traction the fracture was brought to appropriate alignment and length. I first proceeded with a proximal incision on top of the tibial tubercle measuring about 4 cm. Starter guidewire was placed and positioning was confirmed with AP and lateral radiographs. Then using a Starter reamer, the entry drill hole was made and a ball tip guidewire was placed across the fracture site. The positioning of the wire was confirmed both on AP and lateral radiographs. Next, the canal was sequentially reamed up to 10.5 mm diameter. The tibial nail length was assessed to be 315 mm in length. Then using the jig, the tibial nail was impacted into the fracture site and the fracture was brought up to the length. The positioning was confirmed on AP and lateral radiographs. Using targeting guide, two proximal locking screws were placed and using under free hand technique two distal locking screws were placed. Final radiograph shows appropriate fracture reduction in length. The wound was copiously irrigated and closed in standard manner. Sterile dressing was applied. The patient was placed in a posterior splint. Her postoperative instructions included nonweightbearing. There were no complications of surgery. Dr. Cristi Franklin is a board certified orthopedic surgeon who was present for the entirety of the case as his participation was crucial in patient positioning, retraction of critical neurovascular structure, fracture reduction, proper implant positioning, and successful completion of the surgery. Mahendra Vizcaino MD
--- NOTE | 2018-12-10 15:19 | RAD ---
Date of service: 12/07/2018 PROCEDURE: Fluoroscopy up to 1 hr. HISTORY: RT TIB/FIB ORIF COMPARISON: None TECHNIQUE: Standard protocol for this study/examination. FINDINGS: Total fluoroscopic time (continuous mode) utilized during the procedure 164.3 seconds. Total exam DLP: 5.91 (mGy). Submitted images from the current procedure: 18.0 IMPRESSION: Less than 1 hr fluoroscopic assistance provided during performance of the procedure.
== END 2018-12-09 12:19 | disposition home or self-care (01) | DRG 493 ==
LOC: H.ER 09:19 → H.ERHOLD 11:07 → H.ER 12:20 → H.MEDSURG1 17:46
PROC: 0QSG04Z Reposition Right Tibia with Internal Fixation Device, Open Approach (ICD-10-PCS; principal; 2018-12-07 13:00)
PROC: F07Z9YZ Gait Training/Functional Ambulation Treatment using Other Equipment (ICD-10-PCS; 2018-12-09)
DX: S82.251A Displaced comminuted fracture of shaft of right tibia, initial encounter for closed fracture (principal); D62 Acute posthemorrhagic anemia; S82.451A Displaced comminuted fracture of shaft of right fibula, initial encounter for closed fracture; R33.8 Other retention of urine; S82.831A Other fracture of upper and lower end of right fibula, initial encounter for closed fracture; S82.301A Unspecified fracture of lower end of right tibia, initial encounter for closed fracture; X50.1XXA Overexertion from prolonged static or awkward postures, initial encounter; J45.20 Mild intermittent asthma, uncomplicated; F41.9 Anxiety disorder, unspecified; Y93.89 Activity, other specified; Y92.9 Unspecified place or not applicable; Z79.51 Long term (current) use of inhaled steroids; Z80.41 Family history of malignant neoplasm of ovary; Z83.3 Family history of diabetes mellitus; Z87.891 Personal history of nicotine dependence; F32.9 Major depressive disorder, single episode, unspecified